=== PATIENT | male | born 2000 | race African-American/Black ===

== ENCOUNTER 2021-10-01 15:15 | Emergency (ER) | payer MEDICAID ==
[~2021-10-01] VITALS: Ht 182.9 cm; Wt 75.0 kg
[2021-10-01 15:16] VITALS: BP 136/84
[2021-10-01] MEDS ORDERED: NALOXONE HCL 1 MG/ML 2ML VIAL ONE (15:34)
== END 2021-10-01 15:53 | disposition left against medical advice (07) ==
LOC: ER 15:15
DX: T40.411A Poisoning by fentanyl or fentanyl analogs, accidental (unintentional), initial encounter (principal); I51.7 Cardiomegaly; I49.8 Other specified cardiac arrhythmias; Y92.9 Unspecified place or not applicable; R06.81 Apnea, not elsewhere classified
CPT/HCPCS: 93005; 99283; J2310

== ENCOUNTER 2021-12-08 23:25 | Emergency (ER) | payer MEDICAID ==
[~2021-12-08] VITALS: Ht 175.3 cm; Wt 70.0 kg
[2021-12-08 23:30] VITALS: BP 125/79
== END 2021-12-08 23:40 | disposition home or self-care (01) ==
LOC: ER 23:25
DX: T50.901A Poisoning by unspecified drugs, medicaments and biological substances, accidental (unintentional), initial encounter (principal); Y92.89 Other specified places as the place of occurrence of the external cause
CPT/HCPCS: 99283